=== PATIENT | female | born 1980 | race Caucasian/White ===

== ENCOUNTER 2020-09-13 19:05 | Emergency (ER) | payer SELFPAY ==
[2020-09-13 21:14] LABS: Basophils # (Auto) 0.1 K/mm3 (0.0-0.1); Basophils % (Auto) 0.6 % (0.0-1.8); Eosinophils # (Auto) 0.3 K/mm3 (0.0-0.4); Eosinophils % (Auto) 2.8 % (0.0-4.3); Hemoglobin 10.9 gm/dl (10.1-14.3); Lymphocytes # (Auto) 2.8 K/mm3 (1.2-5.4); Lymphocytes % (Auto) 25.8 % (13.4-35.0); Mean Corpuscular HGB Conc 33 % (30-34); Mean Corpuscular Volume 80 fl (79-97); Monocytes # (Auto) 0.9 K/mm3 (0.0-0.8); Monocytes % (Auto) 8.6 % (0.0-7.3); Platelet Count 285 K/mm3 (140-440); Red Blood Count 4.12 M/mm3 (3.65-5.03); Red Cell Distribution Width 16.8 % (13.2-15.2)
--- NOTE | 2020-09-13 21:39 | Ultrasound Report ---
ULTRASOUND OBSTETRIC INDICATION / CLINICAL INFORMATION: vaginal bleeding. TECHNIQUE: Transabdominal and Transvaginal. COMPARISON: None available. FINDINGS: GESTATIONAL SAC: Well-defined oval shape and intrauterine in location. YOLK SAC: No significant abnormality. EMBRYO/FETUS: No significant abnormality. - [place]-Rump Length = 5.4 cm = 12 weeks, 0 day(s). - Heart Rate, beats per minute (if present) = not detected on color or M-mode ADNEXA: No significant abnormality. FREE FLUID: None. ADDITIONAL FINDINGS: None. IMPRESSION: 1. demise with estimated sonographic age of 12 weeks, 0 day(s). Signer Name: Hemal Major MD Signed: 09/13/2020 9:35 PM Workstation Name: [id number]
--- NOTE | 2020-09-13 21:39 | Ultrasound Report ---
ULTRASOUND OBSTETRIC INDICATION / CLINICAL INFORMATION: vaginal bleeding. TECHNIQUE: Transabdominal and Transvaginal. COMPARISON: None available. FINDINGS: GESTATIONAL SAC: Well-defined oval shape and intrauterine in location. YOLK SAC: No significant abnormality. EMBRYO/FETUS: No significant abnormality. - Aubrey-Rump Length = 5.4 cm = 12 weeks, 0 day(s). - Heart Rate, beats per minute (if present) = not detected on color or M-mode ADNEXA: No significant abnormality. FREE FLUID: None. ADDITIONAL FINDINGS: None. IMPRESSION: 1. demise with estimated sonographic age of 12 weeks, 0 day(s). Signer Name: Hemal Major MD Signed: 09/13/2020 9:35 PM Workstation Name: [email or web address]
[2020-09-13 21:54] LABS: Bacteria,Urine 4+ /HPF (Negative); Bilirubin,Urine NEG (Negative); Blood,Urine LG (Negative); Calcium Oxalate Crystals,Urine 2+; Color,Urine Amber (Yellow); Urobilinogen,Urine < 2.0 mg/dL (<2.0)
[2020-09-13 21:55] LABS: RBC,Urine > 182.0 /HPF (0.0-6.0)
--- NOTE | 2020-09-13 22:26 | Emergency Department Report ---
ED General Adult HPI - General Chief complaint: Vaginal Bleeding Stated complaint: ABD PAINS 13 WKS PREG Time Seen by Provider: 09/13/20 21:08 Source: patient Mode of arrival: Ambulatory Limitations: No Limitations - History of Present Illness Initial comments: 39-year-old female patient (; 13 weeks by dates) presents to the emergency department with complaints of lower abdominal pain and vaginal bleeding starting approximately 5 hours ago. No preceding fall, trauma, or injury. She has soaked through approximately 5 tampons in the last 5 hours patient experienced similar symptoms last year, at which time she was found to be having a spontaneous . Patient's validation technician is at the [facility]. Denies fever, chills, nausea, vomiting, dizziness, chest pain, shortness of breath, syncope. Denies all other complaints at this time. - Related Data Allergies Allergy/AdvReac Type Severity Reaction Status Date / Time No Known Allergies Allergy Unverified 09/13/20 20:49 ED Review of Systems ROS: Stated complaint: ABD PAINS 16 WKS PREG Other details as noted in HPI Other: GENERAL: Negative for fever, chills, weight change, anorexia, fatigue. ENT: Negative for ear pain, difficulty hearing, sore throat, nasal congestion, epistaxis. CARDIOVASCULAR: Negative for chest pain, palpitations, lower extremity swelling. PULMONARY: Negative for cough, dyspnea, wheezing, orthopnea, cyanosis. GASTROINTESTINAL: Positive for abdominal pain GENITOURINARY: Positive for vaginal bleeding MUSCULOSKELETAL: Negative for joint pain, joint swelling, myalgias, back pain, neck pain. NEUROLOGICAL: Negative for headache, seizure, syncope, paresthesias, weakness. INTEGUMENTARY: Negative for erythema, rash, diaphoresis, laceration, ecchymosis. HEMATOLOGICAL: Negative for hemoptysis, hematemesis, hematochezia, hematuria. PSYCHIATRIC: Negative for hallucinations, suicidal ideation, homicidal ideation, anxiety, depression. ED Past Medical Hx - Past Medical History Previous Medical History?: No - Surgical History Past Surgical History?: Yes Additional Surgical History: - Social History Smoking Status: Never Smoker Substance Use Type: None ED Physical Exam - General Limitations: No Limitations - Other Other exam information: General: Awake and alert. No acute distress. Head: Atraumatic, normocephalic. Eyes: EOMI. Pupils are equal and round. Normal sclera and conjunctiva. ENT: Oral mucosa is moist. Normal pharyngeal exam. Neck: Supple. No lymphadenopathy. Pulmonary: No respiratory distress. Clear to auscultation bilaterally. Cardiac: Regular rate and rhythm. Pulses are palpable and equal bilaterally. No lower extremity cyanosis or edema. Skin: Warm and dry. No rashes. Abdomen: Soft, non-tender, non-protuberant. No guarding, rigidity, or rebound. Bowel sounds are normal. No organomegaly or masses noted. Pelvic: Female apartment community manager (JADA Garcia) present. Normal external inspection. Cervical os is closed. There is no cervical motion tenderness. There is blood in the vaginal vault. No discharge. Back: Normal alignment. No CVA tenderness. Extremities: Symmetrical. Full range of motion intact. Neurological: Alert and oriented, appropriately interactive, no focal deficits. Psych: Cooperative. Appropriate mood and affect. Speech is evenly metered. Thoughts are logically construed. ED Course Vital Signs 09/13/20 09/13/20 09/13/20 20:10 20:49 22:47 Temperature 98.4 F 99.1 F Pulse Rate 86 88 Respiratory 48 H 20 16 Rate Blood Pressure 125/67 136/72 O2 Sat by Pulse 99 99 Oximetry ED Medical Decision Making - Lab Data Result diagrams: 09/13/20 21:00 - Radiology Data [facility] [address] [place] [address] Ultrasound Report Signed Patient: ASHOK LUDWIG MR#: [id number] : 1980 Acct:[id number] Age/Sex: 39 / F ADM Date: 09/13/20 Loc: ED Attending Dr: Ordering Physician: DAE SAUCEDA MD Date of Service: 09/13/20 Procedure(s): US OB <= 14 weeks fetus Accession Number(s): [id number] cc: DAE SAUCEDA MD ULTRASOUND OBSTETRIC INDICATION / CLINICAL INFORMATION: vaginal bleeding. TECHNIQUE: Transabdominal and Transvaginal. COMPARISON: None available. FINDINGS: GESTATIONAL SAC: Well-defined oval shape and intrauterine in location. YOLK SAC: No significant abnormality. EMBRYO/FETUS: No significant abnormality. - [place]-Rump Length = 5.4 cm = 12 weeks, 0 day(s). - Heart Rate, beats per minute (if present) = not detected on color or M- mode ADNEXA: No significant abnormality. FREE FLUID: None. ADDITIONAL FINDINGS: None. IMPRESSION: 1. demise with estimated sonographic age of 12 weeks, 0 day(s). Signer Name: Hemal Major MD Signed: 09/13/2020 9:35 PM Workstation Name: [id number] Transcribed By: TL Dictated By: Hemal Major MD Electronically Authenticated By: Hemal Major MD Signed Date/Time: 09/13/202134 DD/ 32 TD/TT: - Medical Decision Making Differential diagnosis including but not limited to: septic , ectopic , demise, uterine rupture, molar On reevaluation, patient remains stable. No tachycardia or hypotension to suggest hemorrhagic shock. Hemoglobin is stable. Ultrasound shows demise with estimated sonographic age of 12 weeks, 0 day(s). Beta hCG is approximately 36,000. Pelvic examination shows minimal active bleeding, no products of conception visualized. Blood type is O- and therefore RhoGam was administered. Multiple attempts to contact validation technician on-call at [facility] were unsuccessful. Spoke with nailhead puncher on-call for [facility], who recommends expectant management until patient is able to see her own validation technician tomorrow morning. No clinical indication for emergent surgical consultation or administration of additional medications at this time. Patient will be discharged home with a copy of all laboratory and imaging results to take with her to her validation technician in the morning. Emphasized the importance of calling the clinic as soon as they are open in order to expedite outpatient follow-up. Advised to refrain from tampon use. Patient expressed understanding and is agreeable to plan of care. Strict return precautions provided. Repeat exam is unremarkable and benign. History, exam, diagnostic testing, and current condition do not suggest worrisome pathology to warrant further testing, continued ED treatment, admission, or surgical evaluation at this point. Given the low probability of a significant medical illness, it would be more likely to result in harm than benefit to perform further testing at this stage. Discussed findings, presumptive diagnosis, need for follow-up and specific signs/symptoms that should prompt immediate return to the emergency department. Instructions were explained in detail to the patient in addition to giving written discharge information. Patient expressed understanding and was given the opportunity to ask questions, all of which were satisfactorily answered prior to discharge home. Critical care attestation.: If time is entered above; I have spent that time in minutes in the direct care of this critically ill patient, excluding procedure time. ED Disposition Clinical Impression: demise Disposition: DC-01 TO HOME OR SELFCARE Is pt being admited?: No Does the pt Need Aspirin: No Condition: Stable Instructions: Demise Additional Instructions: Take Tylenol every 4 hours as needed for pain. Apply heating pad to affected area as needed for pain. Rest. Drink plenty of fluids. Use pads instead of tampons for blood loss. You must follow up with your validation technician within 12 hours (tomorrow morning) for further evaluation and management. Bring a copy of today's results with you to the clinic. Return to the emergency department immediately for new or worsening symptoms. Specifically, return to the emergency department immediately for fever, worsening pain, dizziness, shortness of breath, loss of consciousness, or any other concerns. Referrals: STACEY FELIX MD [Primary Care Provider] - 3-5 Days Time of Disposition: 22:47
[2020-09-13] MEDS ORDERED: oxyCODONE /ACETAMINOPHEN 5-325MG TAB PO ONE (23:54)
[2020-09-13] MEDS ORDERED: ONDANSETRON 4 MG ODT TAB PO ONE (23:54)
[2020-09-14 00:29] VITALS: BP 144/62
== END 2020-09-14 00:31 | disposition home or self-care (01) ==
LOC: ED 19:05
DX: O36.4XX1 Maternal care for intrauterine death, fetus 1 (principal); Z98.890 Other specified postprocedural states; Z3A.16 16 weeks gestation of pregnancy
CPT/HCPCS: 36415; 36430; 76801; 76817; 81001; 84702; 85025; 86850; 86900; 86901; 87076; 87086; 87186; 99284; J2790; Q0162